=== PATIENT | male | born 1980 | race Two or more races ===

== ENCOUNTER 2022-12-03 07:18 | Emergency (ER) | payer MEDICAID | END 2022-12-03 08:32 | disposition home or self-care (01) | LOC: MW.ED 07:18 | DX: M19.90 Unspecified osteoarthritis, unspecified site (principal); F17.210 Nicotine dependence, cigarettes, uncomplicated | CPT/HCPCS: 73502-26-RT; 73502-RT; 99282; 99283 ==

== ENCOUNTER 2023-07-22 20:52 | Emergency (ER) | payer OTHER | END 2023-07-22 22:37 | disposition home or self-care (01) | LOC: MW.ED 20:52 | DX: M79.89 Other specified soft tissue disorders (principal); Z75.8 Other problems related to medical facilities and other health care | CPT/HCPCS: 73590-26-RT; 73590-RT; 73610-26-RT; 73610-RT; 93971-26-RT; 93971-RT; 99283; 99284 ==

== ENCOUNTER 2024-05-16 20:01 | Emergency (ER) | payer BC ==
[2024-05-16 20:15] LABS: APPEARANCE,URINE CLEAR; BILIRUBIN,URINE NEGATIVE (NEGATIVE); COLOR,URINE YELLOW; GLUCOSE,URINE >=1000 mg/dL (NEGATIVE); KETONES,URINE NEGATIVE (NEGATIVE); LEUKOCYTE ESTERASE,URINE NEGATIVE (NEGATIVE); NITRITE,URINE NEGATIVE (NEGATIVE); OCCULT BLOOD,URINE NEGATIVE (NEGATIVE); PH,URINE 5.5 (5.0-8.0); PROTEIN,URINE 100 mg/dL (NEGATIVE); UROBILINOGEN,URINE 0.2 EU/dL (<2.0)
[2024-05-16 20:22] LABS: BACTERIA,URINE FEW (NEGATIVE); EPITHELIAL CELLS,URINE OCCASIONAL (NONE-FEW); RBC,URINE 0-2 (0-2/HPF)
[2024-05-16] MEDS ORDERED: Sodium Chloride 0.9% 10 ML Syringe FLUSH PRN (20:36)
[2024-05-16] MEDS ORDERED: Sodium Chloride 0.9% 2.5 ML Syringe FLUSH PRN (20:36)
[2024-05-16] MEDS: Sodium Chloride 0.9% 1,000 ML IV ONE ×2 (20:46→22:07)
[2024-05-16 20:52] LABS: BASOPHILS ABSOLUTE AUTO 0.05 K/uL (0.00-0.20); BASOPHILS PERCENT AUTO 0.8 % (0.0-1.0); EOSINOPHILS ABSOLUTE AUTO 0.07 K/uL (0.00-0.45); EOSINOPHILS PERCENT AUTO 1.1 % (0.0-6.0); HEMATOCRIT 42.4 % (42.0-52.0); HEMOGLOBIN 14.9 g/dL (14.0-18.0); IMMATURE GRAN ABSOLUTE AUTO 0.03 K/uL (0.00-0.05); IMMATURE GRAN PERCENT AUTO 0.5 % (0.0-0.4); LYMPHOCYTES PERCENT AUTO 40.9 % (24.0-44.0); MEAN CORPUSCULAR HEMOGLOBIN 29.7 pg (28.0-32.0); MEAN CORPUSCULAR HGB CONC 35.1 g/dL (32.0-36.0); MEAN CORPUSCULAR VOLUME 84.5 fL (83.0-99.0); MEAN PLATELET VOLUME 9.9 fL (9.4-12.4); MONOCYTES ABSOLUTE AUTO 0.72 K/uL (0.00-0.80); MONOCYTES PERCENT AUTO 11.3 % (0.0-8.0); NEUTROPHILS ABSOLUTE AUTO 2.89 K/uL (1.80-7.70); NEUTROPHILS PERCENT AUTO 45.4 % (41.0-71.0); PLATELET COUNT,PLT 212 K/uL (150-400); RED BLOOD CELL COUNT 5.02 M/uL (4.52-5.90); WHITE BLOOD CELL COUNT,WBC 6.36 K/uL (3.9-11.3)
[2024-05-16 21:04] LABS: BASE EXCESS VENOUS 3.9 (-2.0-3.0); PH,VENOUS 7.42 (7.32-7.43)
[2024-05-16 21:05] LABS: HEMOGLOBIN A1C 9.6 %
[2024-05-16 21:31] LABS: A/G RATIO 0.9 (0.9-1.6); ALBUMIN 3.7 g/dL (3.4-5.0); BILIRUBIN TOTAL 0.8 mg/dL (0.2-1.0); CALCIUM 8.3 mg/dL (8.5-10.1); CARBON DIOXIDE,CO2 21.3 mmol/L (21.0-32.0); CREATININE 1.4 mg/dL (0.8-1.3); EST CRCL DRUG DOSING (CG) 73.21 mL/min; POTASSIUM,K 4.3 mmol/L (3.5-5.1); PROTEIN TOTAL,TP 7.7 g/dL (6.4-8.2)
[2024-05-16] MEDS: metFORMIN 500 MG Tab.ER PO STA (21:58)
== END 2024-05-16 22:58 | disposition home or self-care (01) ==
LOC: MW.ED 20:01
DX: E11.65 Type 2 diabetes mellitus with hyperglycemia (principal); R74.01 Elevation of levels of liver transaminase levels
CPT/HCPCS: 36415; 80053; 81001; 82009; 82803; 82947; 83036; 85025; 96360; 96361; 99284; A9270; J7030; 99283

== ENCOUNTER 2024-06-10 08:26 | Emergency (ER) | payer BC, OTHER ==
[2024-06-10] MEDS: Lidocaine 1% with EPINEPHrine 1:100,000 10 ML MDV INJECT ONE (13:16)
[2024-06-10] MEDS: Bacitracin Oint 1 GM U/D Packet TOP ONE (14:33)
== END 2024-06-10 14:41 | disposition home or self-care (01) ==
LOC: MW.ED 08:26
DX: L03.116 Cellulitis of left lower limb (principal); L02.416 Cutaneous abscess of left lower limb; I10 Essential (primary) hypertension; J45.909 Unspecified asthma, uncomplicated; E11.9 Type 2 diabetes mellitus without complications; E78.00 Pure hypercholesterolemia, unspecified; Z79.84 Long term (current) use of oral hypoglycemic drugs; Z79.899 Other long term (current) drug therapy; Z75.8 Other problems related to medical facilities and other health care
CPT/HCPCS: 10160; 76881-26-LT; 76881-LT; 87070; 87075; 87205; 93971-26-LT; 93971-LT; 99282; 99284-25